=== PATIENT | male | born 1970 | race American Indian/Alaskan Native ===

== ENCOUNTER 2017-03-06 11:07 | Emergency (ER) | payer MEDICARE ==
[2017-03-06 11:17] VITALS: BP 178/106
--- NOTE | 2017-03-06 12:06 | XRay Report ---
Abdominal series: History: Flank pain. Findings: No acute lung changes. Stable large bore right venous catheter. No free intraperitoneal air. No evidence of bowel distention or wall thickening. Minimal stool in colon. No radiopaque calculus or abnormal calcification. Impression: Essentially negative study.
[2017-03-06 12:18] LABS: Basophils # (Auto) 0.1 K/mm3 (0.0-0.1); Basophils % (Auto) 0.9 % (0.0-1.8); Eosinophils # (Auto) 0.2 K/mm3 (0.0-0.4); Eosinophils % (Auto) 2.5 % (0.0-4.3); Hematocrit 40.2 % (35.5-45.6); Hemoglobin 13.2 gm/dl (11.8-15.2); Lymphocytes # (Auto) 1.4 K/mm3 (1.2-5.4); Lymphocytes % (Auto) 17.8 % (13.4-35.0); Mean Corpuscular HGB Conc 33 % (32-34); Mean Corpuscular Hemoglobin 28 pg (28-32); Mean Corpuscular Volume 85 fl (84-94); Monocytes # (Auto) 0.5 K/mm3 (0.0-0.8); Platelet Count 201 K/mm3 (140-440); Red Blood Count 4.74 M/mm3 (3.65-5.03); Red Cell Distribution Width 15.5 % (13.2-15.2)
[2017-03-06 12:32] LABS: Albumin 3.9 g/dL (3.9-5); Calcium 8.8 mg/dL (8.4-10.2)
== END 2017-03-06 19:24 | disposition left against medical advice (07) ==
LOC: ED 11:07
DX: R10.9 Unspecified abdominal pain (principal); Z53.21 Procedure and treatment not carried out due to patient leaving prior to being seen by health care provider
CPT/HCPCS: 36415; 74022; 80053; 83690; 85025